=== PATIENT | female | born 1970 | race Caucasian/White ===

== ENCOUNTER 2022-04-11 19:17 | Emergency (ER) | payer OTHER ==
[2022-04-11] MEDS ORDERED: diphenhydrAMINE 50 MG/ML VIAL ONE (19:51)
[2022-04-11] MEDS ORDERED: Metoclopramide HCl 10 MG/2 ML VIAL ONE (19:51)
[2022-04-11] MEDS ORDERED: Dexamethasone 10 MG/ML VIAL ONE (19:51)
[2022-04-11 20:22] LABS: #Basophils 0.1 thou/uL (0.0-0.2); #Eosinphils 0.2 thou/uL (0.0-0.7); #Lymphocytes 1.7 thou/uL (1.20-3.40); #Monocytes 0.4 thou/uL (0.11-0.59); #Neutrophils 3.5 thou/uL (1.40-6.50); %Basophils 1.5 % (0.0-1.0); %Eosinophils 3.4 % (0.0-10.0); %Lymphocytes 29.1 % (21.0-51.0); %Monocytes 6.2 % (0.0-10.0); %Neutrophils 59.9 % (42.0-75.0); Hemoglobin 12.7 g/dL (12.0-16.0); Mean Corpuscular Hemoglobin 27.4 pg (27.0-31.0); Mean Platelet Volume 7.2 fL (7.4-10.4); Platelet Count 183 thou/uL (130-400); RBC Distribution Width 13.1 % (11.5-14.5); Red Blood Cell (RBC) Count 4.63 mill/uL (4.20-5.40); White Blood Cell (WBC) Count 5.9 thou/uL (4.8-10.8)
[2022-04-11 20:27] LABS: INR-International Normal Ratio 0.9; Prothrombin Time 12.6 sec (12.0-14.7)
[2022-04-11 20:36] LABS: ALT (SGPT) 21 U/L (8-55); AST (SGOT) 17 U/L (5-34); Alkaline Phosphatase 117 U/L (40-110); Anion Gap 15 mmol/L (10-20); BUN (Urea Nitrogen) 23 mg/dL (7.0-18.7); Bilirubin, Total 0.2 mg/dL (0.2-1.2); Calc. Creatinine Clearance 0 mL/min (70-130); Calcium 8.5 mg/dL (7.8-10.44); Carbon Dioxide 22 mmol/L (22-29); Chloride 109 mmol/L (98-107); Estimated GFR 93; Globulin 2.7 g/dL (2.4-3.5); Glucose 97 mg/dL (70-105); Potassium 3.9 mmol/L (3.5-5.1); Protein, Total 6.7 g/dL (6.0-8.3); Sodium 142 mmol/L (136-145)
[2022-04-11] MEDS ORDERED: Morphine 4 MG/ML VIAL ONE (20:50)
== END 2022-04-11 21:12 | disposition home or self-care (01) ==
LOC: BURERS 19:17
DX: G43.909 Migraine, unspecified, not intractable, without status migrainosus (principal); I10 Essential (primary) hypertension
CPT/HCPCS: 70450; 80053; 85025; 85610; 93005; 96374; 96375; J1100; J1200; J2270; J2765

== ENCOUNTER 2022-06-28 12:36 | Emergency (ER) | payer OTHER ==
[2022-06-28] MEDS ORDERED: Magnesium 2 GM/50 ML BAG (IN WATER) ONE (13:49)
[2022-06-28] MEDS ORDERED: Metoclopramide HCl 10 MG/2 ML VIAL ONE (13:49)
[2022-06-28] MEDS ORDERED: diphenhydrAMINE 50 MG/ML VIAL ONE (13:49)
[2022-06-28] MEDS ORDERED: Ketorolac Tromethamine 30 MG/ML VIAL ONE (14:51)
[2022-06-28] MEDS ORDERED: Dexamethasone 10 MG/ML VIAL ONE (14:51)
[2022-06-28] MEDS ORDERED: Dexamethasone 4 MG TAB PO SCH (15:00)
== END 2022-06-28 15:38 | disposition home or self-care (01) ==
LOC: BURERS 12:36
DX: J32.9 Chronic sinusitis, unspecified (principal); G43.909 Migraine, unspecified, not intractable, without status migrainosus; I10 Essential (primary) hypertension; Z79.899 Other long term (current) drug therapy
CPT/HCPCS: 96365; 96368; 96375; J1100; J1200; J1885; J2765; J3475; J8540